=== PATIENT | female | born 1975 | race Hispanic/Latino ===

== ENCOUNTER 2020-03-28 08:10 | Day surgery (SDC) | payer OTHER ==
[2020-03-28 08:12] LABS: Urine Appearance CLEAR; Urine Bilirubin NEGATIVE (NEG); Urine Blood NEGATIVE (NEG); Urine Color YELLOW; Urine Glucose NEGATIVE (NEG); Urine Microscopic Reflex NO UMIC; Urine Protein NEGATIVE (NEG); Urine Urobilinogen 0.2 mg/dL (0.2-1.0); Urine pH 7.5 (5.0-7.0)
[2020-03-28] MEDS ORDERED: LANO/MINERAL OIL/PETRO 3.5 GM ONE (08:26)
[2020-03-28] MEDS ORDERED: VECURONIUM 10 MG/VIAL IV ONE ×2 (08:27→08:29)
[2020-03-28] MEDS ORDERED: dexAMETHasone 10 MG/ML VIAL ONE (08:28)
[2020-03-28] MEDS ORDERED: propofoL 200 MG/20 ML VIAL IV ONE (08:28)
[2020-03-28] MEDS ORDERED: FENTANYL CITR 250 MCG/5 ML ONE (08:28)
[2020-03-28] MEDS ORDERED: MIDAZOLAM HCL 2 MG/2 ML INJ ONE (08:28)
[2020-03-28] MEDS ORDERED: LIDOCAINE 1% MPF 5 ML VIAL ONE (08:28)
[2020-03-28] MEDS ORDERED: NS 0.9% VIAL 10 ML ONE ×2 (08:28→12:29)
[2020-03-28] MEDS ORDERED: ONDANSETRON 4 MG/2 ML VIAL ONE ×3 (08:29→16:35)
--- OUTSIDE RECORDS SUMMARY | 2020-03-28 08:33 | XMS REPORT | Clinical Summary ---
:1975 Author Organization [facility] Address [address] [place] [id number] Care Team Providers Name Role Phone Asked, No Pcp Primary Care Provider Unavailable Allergies Active Allergy Reactions Severity Noted Date Comments Latex 11/22/2016 Medications Medication Sig Dispensed Refills Start Date End Date Status UCERIS 9 mg tablet, TK 1 T PO QD 0 10/23/2018 Active delayed & ext.release chlordiazepoxide-cl TK ONE C PO Q 3 10/26/2018 Active idinium (LIBRAX) 6 H AC 5-2.5 mg per capsule cyanocobalamin INJECT 1ML IM 6 10/26/2018 Active 1,000 mcg/mL ONCE A WEEK injection FOR 1 MONTH UTD mesalamine (LIALDA) TK 4 TS PO QD 3 10/27/2018 Active 1.2 gram EC tablet mesalamine (CANASA) Insert 1,000 0 Active 1000 MG suppository mg into the rectum nightly. sertraline (ZOLOFT) Take 50 mg by 0 Active 50 MG tablet mouth daily. hydrocortisone 2.5 Apply 30 g 1 07/03/2019 07/02/19 Active % ointment topically 2 21 (two) times a day. norethindrone-e.est Take 1 tablet 28 tablet 12 01/14/202001/13 Active radioL-iron by mouth 21 (Loestrin Fe 06/04, daily. 28-Day,) 1 mg-20 mcg (21)/75 mg (7) per tablet clotrimazole-betame TESFAYE EXT AA Q 3 09/08/2018 Discontinued thasone (LOTRISONE) 12 H PRN 20 (Med List 1-0.05 % cream Clean up) escitalopram TK 1 T PO QD 1 10/26/2018 07/03/19 Dis continued (LEXAPRO) 10 MG 20 (Med List tablet Cleanup) clotrimazole Apply 30 g 0 11/09/2018 07/03/19 Discon tinued (LOTRIMIN) 1 % topically 2 20 (Me d List cream (two) times a Cleanu p) day. hydrocortisone 2.5 Apply 30 g 0 11/30/2018 07/03/19 Discontinued % ointment topically 2 20 (Reorde r) (two) times a day. norethindrone-e.est Take 1 tablet 84 tablet 0 03/05/201903/30 Discontinued radiol-iron (JUNEL by mouth 19 ( Reorder) FE 06/04, ,) 1 daily. mg-20 mcg (21)/75 mg (7) per tablet norethindrone-e.est Take 1 tablet 84 tablet 0 03/30/201904/16 Discontinued radiol-iron (JUNEL by mouth 19 ( Reorder) FE 06/04, 28,) 1 daily. mg-20 mcg (21)/75 mg (7) per tablet norethindrone-e.est Take 1 tablet 84 tablet 0 04/16/201907/03 Discontinued radiol-iron (JUNEL by mouth 20 ( Reorder) FE 06/04, 28,) 1 daily. mg-20 mcg (21)/75 mg (7) per tablet norethindrone-e.est Take 1 tablet 84 tablet 3 07/03/201912/23 Discontinued radiol-iron (JUNEL by mouth 20 FE 06/04, 28,) 1 daily. mg-20 mcg (21)/75 mg (7) per tablet Microgestin FE TAKE 1 TABLET 84 tablet 3 12/24/2019 01/14/20 Discontinued 06/04, 28, 1 mg-20 BY MOUTH DAILY 20 (Availability) mcg (21)/75 mg (7) per tablet Active Problems Not on file Encounters Date Type Specialty Care Team Description 01/28/2020 Telephone Obstetrics and Clover Saini, Dysuria ( Primary Dx) Gynecology RN 01/14/2020 Orders Only Obstetrics and Barbara Pena MA Gynecology 01/07/2020 Telephone Obstetrics Magalie Rivera Gynecology 01/06/2020 Refill Obstetrics Magalie Rivera Gynecology 12/22/2019 Refill Obstetrics Magalie Rivera Gynecology 07/03/2019 Office Visit Obstetrics and Magalie Snider, Visit fo r gynecologic examination (Primary Dx); Gynecology MD Screening for m alignant neoplasm of breast; Vaginal itching ; Screening for S TDs (sexually transmitted diseases) 07/02/2019 Telephone Gynecologic Oncology Magalie Snider MD 06/11/2019 Telephone Obstetrics and Magalie Snider Gynecology 05/22/2019 Telephone Gynecologic Oncology Magalie Snider MD 04/16/2019 Orders Only Obstetrics and Barbara Pena MA Gynecology 03/30/2019 Orders Only Obstetrics and Barbara Pena MA Gynecology after 03/28/2019 Surgical History Surgery Date Site/Laterality Comments AUGMENTATION, BREAST, WITH PROSTHETIC IMPLANT COSMETIC SURGERY abdominal FOOT SURGERY injury from a cu t Medical History Medical History Date Comments Colitis 2015 Abnormal Pap smear of cervix HPV (human papilloma virus) infection Family History Medical History Relation Name Comments Heart disease Maternal Grandmother Hypertension Mother Relation Name Status Comments Maternal Grandmother Mother Social History Tobacco Use Types Packs/Day Years Used Date Never Smoker Smokeless Tobacco: Never Used Alcohol Use Drinks/Week oz/Week Comments No Sex Assigned at Date Recorded Not on file Obstetrics History Grav Para Term Pre Abrt (TAB) (SAB) (Ect) Mult Lvng Comments 1 1 1 1 Date Outcome GA Total Labor/2nd/3rd Weight Sex Delivery Anes PTL Jess A 1 A5 Name Clin Labor Term Last Filed Vital Signs Vital Sign Reading Time Taken Comments Blood Pressure 116/79 07/03/2019 9:34 AM [employer] [employer] Pulse 92 07/03/2019 9:34 AM [employer] [employer] Temperature - - Respiratory Rate - - Oxygen Saturation - - Inhaled Oxygen Concentration - - Weight 79.4 kg (175 lb) 07/03/2019 9:34 AM [employer] Height 157.5 cm (5' 2") 07/03/2019 9:34 AM [employer]NA[employer] Body Mass Index 32.01 07/03/2019 9:34 AM [employer] Plan of Treatment Health Maintenance Due Date Last Done Comments CERVICAL CANCER SCREENING 11/23/2019 11/22/2016 INFLUENZA VACCINE 12/15/2019 Procedures Procedure Name Priority Date/Time Associated Comments Diagnosis HEPATITIS C ANTIBODY Routine 07/03/2019 10:[address] Ds Results for this AM [employer] (sexually procedure are i n transmitted the results diseases) section. HEPATITIS B SURFACE Routine 07/03/2019 10:11 Screening for STD s Results for this ANTIGEN [employer] (sexually procedure are i n transmitted the results diseases) section. HIV 1/2 Routine 07/03/2019 10:11 Screening for STDs Resul ts for this ANTIGEN/ANTIBODY, AM [employer] (sexually procedure are in FOURTH GENERATION W/RFL transmitted the results diseases) section. RPR SCREEN Routine 07/03/2019 10:11 Screening for STDs Resul ts for this AM [employer] (sexually procedure are i n transmitted the results diseases) section. GYNECOLOGIC PAP TEST Routine 07/03/2019 9:45 Visit for Res ults for this (IMAGE-GUIDED), AM [employer]MENT gynecologic procedure ar e in LIQUID-BASED examination the results PREPARATION AND HUMAN sectio n. PAPILLOMAVIRUS (HPV) (APTIMA) WITH REFLEX TO HPV GENOTYPES 16 AND 18,45 NUSWAB VAGINITIS PLUS Routine 07/03/2019 9:45 Vaginal i tching Results for this (VG+) [employer] Screening for STDs procedure are in (sexually the results transmitted section. diseases) after 03/28/2019 Results HIV 1/2 ANTIGEN/ANTIBODY, FOURTH GENERATION W/RFL (07/03/2019 10:11 AM MANAGER [employer]MENT) Pathologist Sig nature HIV AG/AB 4th gen Non Reactive Non Reactive [facility] Specimen Narrative Performed At Performed at: [address] [place] [address] [id number] Retail General Manager: Pedro De Guzman MD, Phone: [phone] Performing Organization Address [facility] Phon e Number [facility] Hepatitis C antibody (07/03/2019 10:11 AM MANAGER INVESTMENT) Hepatitis C Ab <0.1 0.0 - 0.9 s/co [facility] Comment: ratio Neg ative: < 0.8 Indetermina te: 0.8 - 0.9 Pos itive: > 0.9 The CDC recommends that a positive HCV antibody resul t be followed up with a HCV Nucleic Acid Amplification test (473059). Specimen Blood Narrative Performed At Performed at: [address] [place] [address] [id number] Retail General Manager: Pedro De Guzman MD, Phone: [phone] Performing Organization Address City/State/ZIP Code Phon e Number [facility] RPR screen (07/03/2019 10:11 AM MANAGER IN[employer]STMENT) Pathologist Sig nature RPR Non Reactive Non Reactive [facility] Specimen Blood Narrative Performed At Performed at: - [facility] [place] [facility] [address] [place] [id number] Retail General Manager: Pedro De Guzman MD, Phone: [phone] Performing Organization Address [facility] Phon e Number [facility] Hepatitis B surface antigen (07/03/2019 10:11 AM MANAGER INVESTMENT) Pathologist Sig nature Hepatitis B surface Ag Negative Negative [facility] Specimen Blood Narrative Performed At Performed at: - [facility] [address] [place] [id number] Retail General Manager: Pedro De Guzman MD, Phone: [phone] Performing Organization Address [facility] Phon e Number [facility] Gynecologic Pap Test (Image-guided), Liquid-based Preparation and Human Papillomavirus (HPV) (Aptima) With Reflex to HPV Genotypes 16 and 18,45 16 and 18 (07/03/2019 9:45 AM MANAGER INVESTMENT) Diagnosis Comment [facility] Comment: NEGATIVE FOR INTRAEPITHELIAL LESION OR MALIGNANCY. THIS SPECIMEN WAS RESCREENED PART OF OUR QUALITY CO NTROL PROGRAM. Specimen adequacy Comment [facility] Comment: Satisfactory for evaluation. Endocervical and/or squ amous metaplastic cells (endocervical component) are present. Performed by: CommentComment: Broderick Hernandez [facility]CONE[facility] Newell, Broke Handler QC reviewed by: CommentComment: Radha Romero LABWALES[facility] Sandhu Broke Handler (ASCP) Comment . [facility] Note: Comment [facility] 02 Comment: The Pap smear is a screening test designed to aid in t he detection of premalignant and malignant conditions of the uterine c ervix. It is not a diagnostic procedure and should not be used as the eagle e means of detecting cervical cancer. Both false-positive and false-negat jess reports do occur. Test methodology Comment [facility] 02 Comment: This liquid based ThinPrep(R) pap test was screened wi th the use of an image guided system. HPV Aptima Negative Negative [facility] 03 Comment: This nucleic acid amplification test detects fourteen high-risk HPV types (16,18,31,33,35,39,45,51,52,56,58,59,66,68) without differentiation. Specimen Swab Narrative Performed At Performed at: 01 - [facility] [place] [facility] [address] [place], [place] [id number] [phone] Retail General Manager: Pedro De Guzman MD, Phone: [phone] Performed at: 02 - [facility] [address] [place], [place] [id number] 143 Retail General Manager: Pedro De Guzman MD, Phone: [phone] Performed at: 03 - [facility] [address] [facility], X [id number] Retail General Manager: Sara Pearson MD, Phon e: [phone] Specimen Comment: No. of containers..01 ThinPrep Vial Performing Organization Address City/State/ZIP Code Phon e Number [facility] 02 [facility] 03 NuSwab Vaginitis Plus (VG+) (07/03/2019 9:45 AM MANAGER INVESTMENT) Atopobium vaginae Low - 0 Score [facility] BVAB 2 Low - 0 Score [facility] Megasphaera species Low - 0 Score [facility] Comment: Calculate total score by adding the 3 individual bacte rial vaginosis (BV) marker scores together. Total score i s interpreted as follows: Total score 0-1: Indicates the absence of BV. Total score 2: Indeterminate for BV. Additional cli nical data should be evaluated to e stablish a diagnosis. Total score 3-6: Indicates the presence of BV. This test was developed and its performance characteri stics determined by [facility]. It has not been cleared or ap proved by the Food and Drug Administration. The FDA has det ermined that such clearance or approval is not necessary. Brianna albicans, Negative Negative [facility] MAGO C. glabrata, DNA Negative Negative [facility] Trichomonas vag by Negative Negative [facility] MAGO Chlamydia Negative Negative [facility] trachomatis, MAGO Neisseria Negative Negative [facility] gonorrhoeae, MAGO Specimen Swab Narrative Performed At Test(s) 285593-Qqynwoj albicans, MAGO; 56-Brianna glabrata, MAGO [facility] was developed and its performance charac teristics determined by [facility]. It has not been cleared or a pproved by the Food and Drug Administration. 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
[2020-03-28] MEDS ORDERED: Ringers Lactate 0 ML IV ONE (08:43)
[2020-03-28] MEDS ORDERED: CEFAZOLIN/SWI 1gm 1 GM/10 ML SYR ONE (08:43)
[2020-03-28] MEDS ORDERED: SCOPOLAMINE HYDROBROMIDE PATCH TD ONE ×2 (08:43→08:50)
--- NOTE | 2020-03-28 08:54 | RAD REPORT ---
EXAM DESCRIPTION: RAD - Chest Pa And Lat (2 Views) - 03/28/2020 8:09 am CLINICAL HISTORY: preop, pending breast surgery COMPARISON: None TECHNIQUE: Frontal and lateral views of the chest were obtained. FINDINGS: The lungs are clear. Heart size is normal and central vasculature is within normal limit s. No pleural effusion or pneumothorax seen. No acute bony finding noted. No aortic abnormality. IMPRESSION: No acute cardiopulmonary process.
[2020-03-28] MEDS ORDERED: Ringers Lactate 1,000 ML IV ONE ×2 (09:21→09:22)
[2020-03-28] MEDS ORDERED: GENTAMICIN SULF 80 MG/2ML INJ ONE (09:21)
[2020-03-28] MEDS ORDERED: Mastisol Adhesive Liq ONE (09:21)
[2020-03-28] MEDS ORDERED: CEFAZOLIN SODIUM 1 GM/VIAL ONE (09:21)
[2020-03-28] MEDS ORDERED: LIDOCAINE 1% W/EPI 1:100,000 MDV 20 ML VIAL ONE (09:21)
[2020-03-28] MEDS ORDERED: BACITRACIN 50000 UNIT VIAL ONE (09:21)
[2020-03-28] MEDS ORDERED: NS 0.9% VIAL 40 ML ONE (09:21)
[2020-03-28] MEDS ORDERED: EPHEDRINE SULF 50 MG/ML VIAL ONE (12:29)
[2020-03-28] MEDS ORDERED: KETOROLAC 30 MG/ML INJ ONE (12:53)
[2020-03-28] MEDS ORDERED: MORPHINE 10 MG/ML VIAL ONE (12:54)
[2020-03-28] MEDS: HYDROMORPHONE HCL 1 MG/ML INJ ONE ×4 (13:59→14:16)
[2020-03-28] MEDS ORDERED: MEPERIDINE HCL 25 MG/ML SYR ONE (14:38)
[2020-03-28] MEDS ORDERED: CODEINE 30MG/APAP 300MG TAB ONE (15:16)
[2020-03-28 16:35] VITALS: TEMP 97
[2020-03-28 16:37] VITALS: BP 101/64; O2SAT 99
--- NOTE | 2020-03-30 07:48 | EKG ---
Test Date: 2020-03-28 Test Time: 07:57:19 Acoustical Tile Drill Press Operator: REBEKAH MEASUREMENT RESULTS: Intervals: Rate: 71 SD: 114 QRSD: 78 QT: 414 QTc: 449 [place]: P: 15 SD: 114 QRS: 16 T: 8 INTERPRETIVE STATEMENTS: Normal sinus rhythm Normal ECG Compared to ECG 06/13/2013 13:44:29 Myocardial infarct finding no longer present Electronically Signed On 03-30-20 07:41:34 DELIVERY CREW MEMBER by Andre Mosley
--- NOTE | 2020-04-01 12:39 | OP ---
Surgeon: Joel Boswell MD Preoperative Diagnosis: Breast descent status post breast augmentation. Postoperative Diagnosis: Breast descent status post breast augmentation. Procedure: circumareolar mastopexy. Anesthesia: General. Procedure In Detail: After satisfactory induction of general anesthesia, the chest was prepped with DuraPrep. Dry sterile drapes were applied in the usual manner. A 5 cm template used to outline the right and left areolas. Then concentric marking was made approximately 2.5 cm medial to the 5 cm rays marking. Intervening skin was de-epithelialized with dermabrader after it was incised with a scalpel zigzagging around the areola. The skin was then elevated and straps elevated from right breast region from the 12 o'clock and 3 o'clock position. the left breast was done in a mirror image manner. Electrocautery was used to dissect down to the pectoral fascia. At the 12 o'clock and 9 o'clock position, the flap was approximately 2 cm thick then tappered yo the inferior flaps approximately 1 cm thick . the straps were passed through the breast vertically first and then horizontally and then diagonal, and they were tied to themselves with 2-0 PDS sutures. This was done to create a cone. After left side was done, right side was done in an identical manner and returned to the right side. a 10 PATRIZIA was brought out the axilla and wound irrigated with antibiotic solution. Closed the pursestrings with 2o gortex and 4-0 PDS running subcuticular. The left side was done and right side was done in an identical manner. Dressing consisted of tincture of benzoin, Steri-Strips, followed by Esmarch, fluffs, and Forrest wrap. The patient tolerated procedure well and returned to Recovery. BOBBY/LILY Voice ID: [id number] Report ID: [id number] TATIANNA
== END 2020-03-28 16:30 | disposition home or self-care (01) ==
LOC: OR 08:10
PROVIDERS: ATTEND Specialist
PROC: 0H0V0ZZ Alteration of Bilateral Breast, Open Approach (ICD-10-PCS; principal; 2020-03-28 09:00)
DX: N64.81 Ptosis of breast (principal)
CPT/HCPCS: 93005; 81025; 81003; 71046; 19316; J2704; J1580; J2250; J3010; J1100; J2175; J1170 ×2; J0690 ×2; J7120 ×2; J2405 ×3